=== PATIENT | female | born 1985 | race Two or more races ===

== ENCOUNTER → 2024-07-29 | Outpatient (CLI) | payer MEDICAID, SELFPAY ==
--- NOTE | 2024-07-29 09:48 | XR_ITS ---
Examination: Bilateral hands, 6 views. Technique: AP, Oblique, Lateral each hand total 6 views Date and time of exam: July 29, 2024 1052 hours INDICATIONS: Bilateral hand pain one year. FINDINGS: Mild juxta-articular bone demineralization No erosive arthritic change involving either hand 3 mm bony spur off the distal aspect proximal phalanx right fourth digit No fracture or dislocation involving either hand No opaque foreign bodies Mild bilateral osteoarthritis radiocarpal navicular trapezium first carpometacarpal joints Minimal osteoarthritis distal interphalangeal joints second through fifth digits Impression: Mild osteoarthritis No erosive arthritic change
--- NOTE | 2024-07-29 09:48 | XR_ITS ---
Exam: elbow bilateral, 6 views Technique: Elbow AP, oblique each elbow total 6 views Exam date and time: July 29, 2024 1052 hours INDICATIONS: Bilateral elbow pain beginning one year ago. FINDINGS: No fracture or dislocation involving either elbow No elbow effusions No arthritic change IMPRESSION: Negative for osseous abnormalities.
--- NOTE | 2024-07-29 09:48 | XR_ITS ---
Examination: Bilateral wrists 6 views TECHNIQUE: AP oblique lateral each wrist total 6 views Exam date and time: July 29 2024 1057 hours INDICATIONS: Bilateral wrist pain one year. FINDINGS: Mild osteopenia. Mild osteoarthritis radiocarpal navicular trapezium first carpometacarpal joints No fracture or dislocation involving either wrist No avascular necrosis IMPRESSION: Mild osteoarthritis
== END | disposition home or self-care (01) ==
DX: M25.521 Pain in right elbow (principal); M25.522 Pain in left elbow; M19.042 Primary osteoarthritis, left hand; M19.041 Primary osteoarthritis, right hand; M19.032 Primary osteoarthritis, left wrist; M19.031 Primary osteoarthritis, right wrist
CPT/HCPCS: 73080; 73110; 73130